=== PATIENT | female | born 1960 | race Caucasian/White ===

== ENCOUNTER 2022-11-01 17:15 | Emergency (ER) | payer MEDICARE, MEDICAID ==
[~2022-11-01] VITALS: Ht 175.3 cm; Wt 84.1 kg
[2022-11-01 18:02] VITALS: BP 144/70
[2022-11-01] MEDS ORDERED: ketorolac trometh inj. 60 MG/2 ML VIAL IM ONE (18:05)
== END 2022-11-01 19:38 | disposition home or self-care (01) ==
LOC: ER 17:17
DX: M25.561 Pain in right knee (principal); Z87.81 Personal history of (healed) traumatic fracture; W19.XXXA Unspecified fall, initial encounter; Y93.89 Activity, other specified; Y92.89 Other specified places as the place of occurrence of the external cause; Y99.8 Other external cause status
CPT/HCPCS: 73564; 96372; 99284; J1885; A6449

== ENCOUNTER 2023-10-10 13:20 | Emergency (ER) | payer MEDICARE, MEDICAID ==
[~2023-10-10] VITALS: Ht 177.8 cm; Wt 84.7 kg
[2023-10-10 13:52] VITALS: BP 174/90; PULSE 74; RESP 18; TEMP 99.6; O2SAT 98
[2023-10-10 14:26] LABS: BILIRUBIN,URINE NEGATIVE (Neg); CLARITY,URINE CLEAR (Clear); COLOR,URINE YELLOW (Yellow); GLUCOSE, URINE NEGATIVE (Neg); KETONES,URINE NEGATIVE (Neg); LEUKOCYTE ESTERASE ,URINE NEGATIVE (Neg); NITRITES, URINE NEGATIVE (Neg); OCCULT BLOOD,URINE NEGATIVE (Neg); PH,URINE 5.5 (4.8-8.0); PROTEIN,URINE NEGATIVE (Neg); UROBILINOGEN,URINE 0.2 E.U/dL (0.2-1.0)
[2023-10-10 14:31] LABS: UA COLLECTION TYPE CLN CATCH MIDSTREAM
[2023-10-10] MEDS: LIDOcaine 5% patch TP STA (15:14)
== END 2023-10-10 16:02 | disposition home or self-care (01) ==
LOC: ER 13:20
DX: M54.50 Low back pain, unspecified (principal); M81.0 Age-related osteoporosis without current pathological fracture; Z72.89 Other problems related to lifestyle; Z87.81 Personal history of (healed) traumatic fracture
CPT/HCPCS: 72100; 81003; 99284

== ENCOUNTER 2023-10-21 20:20 | Emergency (ER) | payer MEDICARE, MEDICAID ==
[~2023-10-21] VITALS: Ht 175.3 cm; Wt 82.7 kg
[2023-10-21 20:39] VITALS: BP 136/78; PULSE 85; RESP 17; TEMP 98.3; O2SAT 97
[2023-10-22] MEDS ORDERED: CYCL-394 PO (18:31)
[2023-10-22] MEDS ORDERED: LIDO700A47 TOP (18:31)
[2023-10-22] MEDS ORDERED: CEPH500C2 PO (18:31)
[2023-10-22] MEDS ORDERED: IBUP-1985 PO (18:31)
== END 2023-10-22 01:10 | disposition left against medical advice (07) ==
LOC: ER 20:21
DX: M54.9 Dorsalgia, unspecified (principal); Z53.21 Procedure and treatment not carried out due to patient leaving prior to being seen by health care provider
CPT/HCPCS: 99281

== ENCOUNTER 2023-10-22 17:46 | Emergency (ER) | payer MEDICARE, MEDICAID ==
[~2023-10-22] VITALS: Ht 175.3 cm; Wt 85.6 kg
[2023-10-22 17:52] VITALS: BP 148/68; PULSE 86; TEMP 98; O2SAT 96
[2023-10-22] MEDS ORDERED: ketorolac trometh. 30mg/ml inj. IM ONE (18:15)
[2023-10-22] MEDS ORDERED: CYCL-394 PO (18:31)
[2023-10-22] MEDS ORDERED: CEPH500C2 PO (18:31)
[2023-10-22] MEDS ORDERED: LIDO700A47 TOP (18:31)
[2023-10-22] MEDS ORDERED: IBUP-1985 PO (18:31)
[2023-10-22 18:48] VITALS: RESP 16
[2023-10-22] MEDS: ketorolac tromethamine 15mg/ml inj. IM ONE (18:48)
[2023-10-22] MEDS: acetaminophen 325mg tablet PO ONE (18:49)
[2023-10-22] MEDS: orphenadrine citrate 60mg/2ml inj. IM ONE (18:49)
== END 2023-10-22 18:58 | disposition home or self-care (01) ==
LOC: ER 17:47
DX: M54.50 Low back pain, unspecified (principal); L03.211 Cellulitis of face
CPT/HCPCS: 96372; 99284; J1885; J2360

== ENCOUNTER 2023-10-24 17:18 | Emergency (ER) | payer MEDICARE, MEDICAID ==
[~2023-10-24] VITALS: Ht 175.3 cm; Wt 86.0 kg
[~2023-10-24 17:18] MED LIST: CEPH500C2 PO; CYCL-394 PO; IBUP-1985 PO; LIDO700A47 TOP
[2023-10-24 17:21] VITALS: BP 154/71; PULSE 96; O2SAT 96
[2023-10-24] MEDS: diphenhydrAMINE 25mg capsule PO ONE (17:42)
[2023-10-24] MEDS: triamcinolone acetonide 40mg/ml inj IM ONE (17:42)
[2023-10-24] MEDS ORDERED: PRED20TA PO (17:47)
[2023-10-24 17:58] VITALS: RESP 16; TEMP 98.6
== END 2023-10-24 18:10 | disposition home or self-care (01) ==
LOC: ER 17:19
DX: L23.7 Allergic contact dermatitis due to plants, except food (principal); M81.0 Age-related osteoporosis without current pathological fracture; Z87.81 Personal history of (healed) traumatic fracture; Z72.9 Problem related to lifestyle, unspecified; Z79.2 Long term (current) use of antibiotics; Z98.890 Other specified postprocedural states; Z79.82 Long term (current) use of aspirin; Z79.899 Other long term (current) drug therapy
CPT/HCPCS: 96372; 99283; J3301; Q0163

== ENCOUNTER 2024-04-03 22:32 | Emergency (ER) | payer MEDICARE, MEDICAID ==
[~2024-04-03] VITALS: Ht 175.3 cm; Wt 77.3 kg
[~2024-04-03 22:32] MED LIST changes: -CEPH500C2 PO; -CYCL-394 PO
[2024-04-03 22:44] VITALS: TEMP 98.6; O2SAT 97
[2024-04-03] MEDS: triamcinolone acetonide 40mg/ml inj IM ONE (23:02)
[2024-04-03 23:21] VITALS: BP 150/82; PULSE 91; RESP 18
== END 2024-04-03 23:25 | disposition home or self-care (01) ==
LOC: ER 22:33
DX: L23.7 Allergic contact dermatitis due to plants, except food (principal); Z79.899 Other long term (current) drug therapy; Z79.1 Long term (current) use of non-steroidal anti-inflammatories (NSAID); Z72.89 Other problems related to lifestyle; Z98.890 Other specified postprocedural states
CPT/HCPCS: 96372; 99283; J3301

== ENCOUNTER 2024-10-02 16:26 | Emergency (ER) | payer MEDICARE, MEDICAID | END 2024-10-02 17:51 | disposition left against medical advice (07) | LOC: ER 16:27 | DX: L23.7 Allergic contact dermatitis due to plants, except food (principal); Z53.21 Procedure and treatment not carried out due to patient leaving prior to being seen by health care provider ==